=== PATIENT | female | born 1945 | race Caucasian/White ===

== ENCOUNTER 2023-01-20 00:21 | Inpatient (IN) | payer BC, MEDICARE ==
[2023-01-20 01:44] LABS: #Basophils 0.1 thou/uL (0.0-0.2); #Eosinphils 0.1 thou/uL (0.0-0.7); #Lymphocytes 1.3 thou/uL (1.20-3.40); #Monocytes 0.6 thou/uL (0.11-0.59); #Neutrophils 3.9 thou/uL (1.40-6.50); %Basophils 1.3 % (0.0-1.0); %Eosinophils 1.5 % (0.0-10.0); %Lymphocytes 21.1 % (21.0-51.0); %Monocytes 10.5 % (0.0-10.0); %Neutrophils 65.6 % (42.0-75.0); Hemoglobin 10.5 g/dL (12.0-16.0); Mean Corpuscular HGB CONC 33.5 g/dL (32.0-36.0); Mean Corpuscular Hemoglobin 32.1 pg (27.0-31.0); Mean Corpuscular Volume 95.6 fl (78.0-98.0); Mean Platelet Volume 7.1 fL (7.4-10.4); Platelet Count 187 10x3/uL (130-400); Red Blood Cell (RBC) Count 3.28 mill/uL (4.20-5.40)
[2023-01-20 02:06] LABS: ALT (SGPT) 12 U/L (8-55); AST (SGOT) 17 U/L (5-34); Albumin 3.9 g/dL (3.4-4.8); Alkaline Phosphatase 80 U/L (40-110); Anion Gap 9 mmol/L (10-20); BUN (Urea Nitrogen) 9 mg/dL (9.8-20.1); Bilirubin, Total 0.4 mg/dL (0.2-1.2); Calc. Creatinine Clearance 0 mL/min (70-130); Calcium 9.3 mg/dL (7.8-10.44); Carbon Dioxide 28 mmol/L (23-31); Chloride 108 mmol/L (98-107); Estimated GFR 89; Globulin 2.7 g/dL (2.4-3.5); Glucose 128 mg/dL (83-110); Potassium 3.9 mmol/L (3.5-5.1); Protein, Total 6.6 g/dL (5.8-8.1); Sodium 141 mmol/L (136-145)
[2023-01-20] MEDS ORDERED: Morphine 2 MG/ML VIAL SLOW IVP PRN (02:51)
[2023-01-20] MEDS ORDERED: Ipratropium/Albuterol 3 ML NEB NEB PRN (02:51)
[2023-01-20] MEDS ORDERED: Ondansetron PF 4 MG/2 ML Vial IVP PRN (02:51)
[2023-01-20 03:40] LABS: #Eosinphils 0.1 thou/uL (0.0-0.7); #Lymphocytes 0.9 thou/uL (1.20-3.40); #Neutrophils 10.1 thou/uL (1.40-6.50); %Basophils 0.2 % (0.0-1.0); %Eosinophils 0.5 % (0.0-10.0); %Lymphocytes 7.3 % (21.0-51.0); %Monocytes 8.2 % (0.0-10.0); %Neutrophils 83.7 % (42.0-75.0); Hemoglobin 10.3 g/dL (12.0-16.0); Mean Corpuscular HGB CONC 33.4 g/dL (32.0-36.0); Mean Corpuscular Hemoglobin 31.9 pg (27.0-31.0); Mean Corpuscular Volume 95.5 fl (78.0-98.0); Mean Platelet Volume 7.2 fL (7.4-10.4); Platelet Count 181 10x3/uL (130-400); Red Blood Cell (RBC) Count 3.21 mill/uL (4.20-5.40); White Blood Cell (WBC) Count 12.1 10x3/uL (4.8-10.8)
[2023-01-20] MEDS ORDERED: Morphine 2 MG/ML VIAL ONE (03:41)
[2023-01-20] MEDS ORDERED: Ondansetron PF 4 MG/2 ML Vial ONE ×3 (03:41→15:55)
[2023-01-20 04:02] LABS: Anion Gap 11 mmol/L (10-20); BUN (Urea Nitrogen) 9 mg/dL (9.8-20.1); Calc. Creatinine Clearance 0 mL/min (70-130); Calcium 9.4 mg/dL (7.8-10.44); Carbon Dioxide 26 mmol/L (23-31); Chloride 107 mmol/L (98-107); Estimated GFR 91; Glucose 124 mg/dL (83-110); PTT 24.2 sec (22.9-36.1); Potassium 3.5 mmol/L (3.5-5.1); Prothrombin Time 13.6 sec (12.0-14.7); Sodium 140 mmol/L (136-145)
[2023-01-20 04:49] VITALS: BMI 16.0
[2023-01-20] MEDS ORDERED: Sodium Chloride 0.9% 1,000 ML IV SCH (05:15)
[2023-01-20] MEDS ORDERED: Acetaminophen 500 MG TAB PO SCH (06:00)
[2023-01-20] MEDS ORDERED: CEFAZOLIN 2 GM in Sodium Chloride 0.9% 100 ML IVPB SCH (08:45)
[2023-01-20] MEDS ORDERED: Polyethylene Glycol 3350 17 GM Packet PO SCH (09:00)
[2023-01-20] MEDS ORDERED: Senokot S 8.6-50 MG TAB PO SCH (09:00)
[2023-01-20] MEDS ORDERED: TETANUS, DIPHTHERIA TOX,ADULT (TDVAX) 0.5 ML VIAL IM ONE (09:00)
[2023-01-20] MEDS: Lorazepam 0.5 MG TAB PO SCH (09:32)
[2023-01-20] MEDS: Escitalopram Oxalate 10 mg Tablet PO SCH (11:29)
[2023-01-20] MEDS: Senokot S 8.6-50 MG TAB PO SCH ×2 (11:30→21:10)
[2023-01-20] MEDS: Polyethylene Glycol 3350 17 GM Packet PO SCH (11:30)
[2023-01-20] MEDS: Famotidine/PF 20 mg/2ml Vial SLOW IVP SCH ×2 (11:30→21:10)
[2023-01-20] MEDS: Acetaminophen 325 MG TAB PO SCH ×3 (13:03→23:54)
[2023-01-20] MEDS: Carbidopa/Levodopa 25-100 mg Tablet PO SCH ×3 (13:04→23:54)
[2023-01-20] MEDS ORDERED: fentaNYL 50 mcg/mL 1 mL Vial ONE ×2 (14:29→14:42)
[2023-01-20] MEDS ORDERED: Sodium Chloride 0.9% 100 ML ONE (14:33)
[2023-01-20] MEDS ORDERED: CEFAZOLIN 2 GM VIAL ONE (14:33)
[2023-01-20] MEDS ORDERED: Phenylephrine 10 MG/ML VIAL ONE (14:45)
[2023-01-20] MEDS ORDERED: NEOSTIGMINE 3 MG/3 ML SYR 3 MG/3 ML SYRINGE ONE (14:45)
[2023-01-20] MEDS ORDERED: Rocuronium Bromide 10 MG/ML (10ML VIAL) ONE (14:45)
[2023-01-20] MEDS ORDERED: PROPOFOL 200 MG/20 ML VIAL ONE (14:45)
[2023-01-20] MEDS ORDERED: GLYCOPYRROLATE/PF 0.2 MG/ML VIAL ONE (14:45)
[2023-01-20] MEDS ORDERED: Dexamethasone 20 MG/5 ML VIAL ONE (14:45)
[2023-01-20] MEDS ORDERED: Lidocaine 1% PF 5 ML VIAL ONE (14:45)
[2023-01-20] MEDS ORDERED: Promethazine HCl 25 MG/ML VIAL IM PRN (15:13)
[2023-01-20] MEDS ORDERED: Ondansetron HCl/PF 4 MG/2 ML Vial IVP PRN ×2 (15:13→15:56)
[2023-01-20] MEDS ORDERED: PACU-Morphine 4MG/ML VIAL SLOW IVP PRN (15:13)
[2023-01-20] MEDS ORDERED: HYDROmorphone 2 MG/ML VIAL SLOW IVP PRN (15:13)
[2023-01-20] MEDS ORDERED: Morphine Sulfate 2 MG/ML SYRINGE SLOW IVP PRN (15:13)
[2023-01-20] MEDS ORDERED: PHENYLEPHRINE-NS 100 MCG/ML 10 ML SYRINGE ONE (15:27)
[2023-01-20] MEDS ORDERED: diphenhydrAMINE 50 MG/ML VIAL ONE (16:20)
[2023-01-20] MEDS: Acetaminophen/Codeine 30-300mg Tablet PO PRN (21:09)
[2023-01-20] MEDS: CEFAZOLIN 2 GM in Sodium Chloride 0.9% 100 ML IVPB SCH (21:10)
[2023-01-20] MEDS: Mirtazapine 15 MG Soltab PO SCH (21:10)
[2023-01-20] MEDS: QUEtiapine 25 MG TAB PO SCH (21:10)
[2023-01-21 04:47] LABS: Bilirubin Negative (Negative); Blood, Urine Negative (Negative); Clarity Clear (Clear); Glucose, Urine (Dipstick) Normal (Negative); Ketone, Urine Negative (Negative); Leukocyte 75 Leu/uL (Negative); Nitrite Negative (Negative); Protein, Urine (Dipstick) Negative (Neg-Trace); RBC/HPF 0-3 HPF (0-3); Specific Gravity, Urine 1.011 (1.002-1.036); Squamous Epithelial None Seen HPF (0-3); Urobilinogen Normal mg/dL (Less than 2); pH, Urine 6.5 (5.0-9.0)
[2023-01-21 04:54] LABS: Bacteria/HPF 1+ HPF (None Seen)
[2023-01-21] MEDS: Acetaminophen 325 MG TAB PO SCH ×4 (05:51→23:37)
[2023-01-21] MEDS: Carbidopa/Levodopa 25-100 mg Tablet PO SCH ×5 (05:51→18:29)
[2023-01-21] MEDS: CEFAZOLIN 2 GM in Sodium Chloride 0.9% 100 ML IVPB SCH ×2 (06:01→15:21)
[2023-01-21 08:08] LABS: #Lymphocytes 1.4 thou/uL (1.20-3.40); #Monocytes 1.2 thou/uL (0.11-0.59); #Neutrophils 6.8 thou/uL (1.40-6.50); %Basophils 0.3 % (0.0-1.0); %Eosinophils 0.1 % (0.0-10.0); %Lymphocytes 14.9 % (21.0-51.0); %Monocytes 12.2 % (0.0-10.0); %Neutrophils 72.5 % (42.0-75.0); Hemoglobin 9.5 g/dL (12.0-16.0); Mean Corpuscular HGB CONC 33.1 g/dL (32.0-36.0); Mean Corpuscular Hemoglobin 31.8 pg (27.0-31.0); Mean Platelet Volume 7.2 fL (7.4-10.4); Platelet Count 174 10x3/uL (130-400); RBC Distribution Width 12.1 % (11.5-14.5); Red Blood Cell (RBC) Count 2.98 mill/uL (4.20-5.40); White Blood Cell (WBC) Count 9.4 10x3/uL (4.8-10.8)
[2023-01-21] MEDS: Escitalopram Oxalate 10 mg Tablet PO SCH (08:51)
[2023-01-21] MEDS: Famotidine/PF 20 mg/2ml Vial SLOW IVP SCH (08:51)
[2023-01-21] MEDS: Lorazepam 0.5 MG TAB PO SCH (08:51)
[2023-01-21] MEDS: Senokot S 8.6-50 MG TAB PO SCH ×2 (08:51→20:23)
[2023-01-21] MEDS: Polyethylene Glycol 3350 17 GM Packet PO SCH (08:51)
[2023-01-21] MEDS: Aspirin 81 mg Enteric Coated Tablet PO SCH ×2 (09:32→20:23)
[2023-01-21] MEDS: Acetaminophen/Codeine 30-300mg Tablet PO PRN ×2 (09:33→20:28)
[2023-01-21] MEDS: Famotidine 20 MG TAB PO SCH ×2 (09:45→20:23)
[2023-01-21] MEDS: Mirtazapine 15 MG Soltab PO SCH (20:22)
[2023-01-21] MEDS: QUEtiapine 25 MG TAB PO SCH (20:23)
[2023-01-22 06:06] LABS: #Lymphocytes 1.1 thou/uL (1.20-3.40); #Monocytes 1.1 thou/uL (0.11-0.59); #Neutrophils 6.7 thou/uL (1.40-6.50); %Basophils 0.3 % (0.0-1.0); %Eosinophils 0.3 % (0.0-10.0); %Lymphocytes 12.6 % (21.0-51.0); %Monocytes 11.7 % (0.0-10.0); %Neutrophils 75.1 % (42.0-75.0); Hemoglobin 8.4 g/dL (12.0-16.0); Mean Corpuscular HGB CONC 33.1 g/dL (32.0-36.0); Mean Corpuscular Hemoglobin 32.2 pg (27.0-31.0); Mean Platelet Volume 7.4 fL (7.4-10.4); Platelet Count 138 10x3/uL (130-400); RBC Distribution Width 12.1 % (11.5-14.5); Red Blood Cell (RBC) Count 2.62 mill/uL (4.20-5.40); White Blood Cell (WBC) Count 8.9 10x3/uL (4.8-10.8)
[2023-01-22] MEDS: Carbidopa/Levodopa 25-100 mg Tablet PO SCH ×5 (06:34→18:27)
[2023-01-22] MEDS: Acetaminophen 325 MG TAB PO SCH ×3 (06:34→18:27)
[2023-01-22] MEDS: Senokot S 8.6-50 MG TAB PO SCH ×2 (08:37→21:27)
[2023-01-22] MEDS: Escitalopram Oxalate 10 mg Tablet PO SCH (08:37)
[2023-01-22] MEDS: Aspirin 81 mg Enteric Coated Tablet PO SCH ×2 (08:37→21:29)
[2023-01-22] MEDS: Polyethylene Glycol 3350 17 GM Packet PO SCH (08:37)
[2023-01-22] MEDS: Famotidine 20 MG TAB PO SCH ×2 (08:37→21:29)
[2023-01-22] MEDS: Lorazepam 0.5 MG TAB PO SCH (08:37)
[2023-01-22] MEDS ORDERED: Bisacodyl 10 MG SUPP PR PRN (12:56)
[2023-01-22] MEDS: Ferrous Sulfate 325 MG TAB PO SCH (16:30)
[2023-01-22] MEDS: Ascorbic Acid 500 mg Chewable Tablet PO SCH (21:26)
[2023-01-22] MEDS: QUEtiapine 25 MG TAB PO SCH (21:29)
[2023-01-22] MEDS: Acetaminophen/Codeine 30-300mg Tablet PO PRN (21:36)
[2023-01-22] MEDS: Mirtazapine 15 MG Soltab PO SCH (21:36)
[2023-01-23] MEDS: Acetaminophen 325 MG TAB PO SCH ×4 (06:04→18:11)
[2023-01-23] MEDS: Carbidopa/Levodopa 25-100 mg Tablet PO SCH ×5 (06:05→18:11)
[2023-01-23] MEDS: Acetaminophen/Codeine 30-300mg Tablet PO PRN (06:08)
[2023-01-23] MEDS: Lorazepam 0.5 MG TAB PO SCH (08:58)
[2023-01-23] MEDS: Ascorbic Acid 500 mg Chewable Tablet PO SCH ×2 (08:58→20:43)
[2023-01-23] MEDS: Senokot S 8.6-50 MG TAB PO SCH ×2 (08:58→20:43)
[2023-01-23] MEDS: Aspirin 81 mg Enteric Coated Tablet PO SCH ×2 (08:58→20:43)
[2023-01-23] MEDS: Escitalopram Oxalate 10 mg Tablet PO SCH (08:59)
[2023-01-23] MEDS: Polyethylene Glycol 3350 17 GM Packet PO SCH (08:59)
[2023-01-23] MEDS: Ferrous Sulfate 325 MG TAB PO SCH ×2 (08:59→16:11)
[2023-01-23] MEDS: Famotidine 20 MG TAB PO SCH ×2 (08:59→20:43)
[2023-01-23] MEDS: Mirtazapine 15 MG Soltab PO SCH (20:43)
[2023-01-23] MEDS: QUEtiapine 25 MG TAB PO SCH (20:43)
[2023-01-23] MEDS ORDERED: Gabapentin 100 MG CAP PO SCH (21:45)
[2023-01-23] MEDS: Cyclobenzaprine 10 MG TAB PO PRN (22:31)
[2023-01-23] MEDS ORDERED: diphenhydrAMINE 50 MG/ML VIAL IVP SCH (23:04)
[2023-01-24] MEDS ORDERED: diphenhydrAMINE 50 MG/ML VIAL IVP SCH (01:15)
[2023-01-24] MEDS: Acetaminophen 325 MG TAB PO SCH ×4 (06:35→18:27)
[2023-01-24] MEDS: Acetaminophen/Codeine 30-300mg Tablet PO PRN ×2 (06:36→21:14)
[2023-01-24] MEDS: Carbidopa/Levodopa 25-100 mg Tablet PO SCH ×5 (06:36→18:27)
[2023-01-24] MEDS: Polyethylene Glycol 3350 17 GM Packet PO SCH (09:49)
[2023-01-24] MEDS: Lorazepam 0.5 MG TAB PO SCH (09:50)
[2023-01-24] MEDS: Escitalopram Oxalate 10 mg Tablet PO SCH (09:50)
[2023-01-24] MEDS: Senokot S 8.6-50 MG TAB PO SCH ×2 (09:50→21:10)
[2023-01-24] MEDS: Aspirin 81 mg Enteric Coated Tablet PO SCH ×2 (09:50→21:10)
[2023-01-24] MEDS: Ascorbic Acid 500 mg Chewable Tablet PO SCH ×2 (09:50→21:10)
[2023-01-24] MEDS: Ferrous Sulfate 325 MG TAB PO SCH ×2 (09:51→18:27)
[2023-01-24] MEDS: Famotidine 20 MG TAB PO SCH ×2 (09:51→21:09)
[2023-01-24] MEDS: Gabapentin 100 MG CAP PO SCH ×3 (09:51→21:10)
[2023-01-24] MEDS: QUEtiapine 25 MG TAB PO SCH (21:10)
[2023-01-24] MEDS: Cyclobenzaprine 10 MG TAB PO PRN (21:10)
[2023-01-24] MEDS: Mirtazapine 15 MG Soltab PO SCH (21:14)
[2023-01-25] MEDS: Acetaminophen 325 MG TAB PO SCH ×4 (02:23→18:28)
[2023-01-25] MEDS: Carbidopa/Levodopa 25-100 mg Tablet PO SCH ×5 (06:30→18:28)
[2023-01-25] MEDS: Escitalopram Oxalate 10 mg Tablet PO SCH (09:32)
[2023-01-25] MEDS: Senokot S 8.6-50 MG TAB PO SCH ×2 (09:32→21:00)
[2023-01-25] MEDS: Famotidine 20 MG TAB PO SCH ×2 (09:32→21:01)
[2023-01-25] MEDS: Ferrous Sulfate 325 MG TAB PO SCH ×2 (09:32→18:28)
[2023-01-25] MEDS: Ascorbic Acid 500 mg Chewable Tablet PO SCH ×2 (09:32→21:01)
[2023-01-25] MEDS: Aspirin 81 mg Enteric Coated Tablet PO SCH ×2 (09:32→21:01)
[2023-01-25] MEDS: Polyethylene Glycol 3350 17 GM Packet PO SCH (09:34)
[2023-01-25] MEDS: Gabapentin 100 MG CAP PO SCH (10:03)
[2023-01-25] MEDS: Lorazepam 0.5 MG TAB PO SCH (10:04)
[2023-01-25 11:47] LABS: Hemoglobin 6.6 g/dL (12.0-16.0); Mean Corpuscular HGB CONC 33.4 g/dL (32.0-36.0); Mean Corpuscular Hemoglobin 32.2 pg (27.0-31.0); Mean Corpuscular Volume 96.4 fl (78.0-98.0); Mean Platelet Volume 6.9 fL (7.4-10.4); Platelet Count 180 10x3/uL (130-400); Red Blood Cell (RBC) Count 2.05 mill/uL (4.20-5.40); White Blood Cell (WBC) Count 7.3 10x3/uL (4.8-10.8)
[2023-01-25 13:40] LABS: Hemoglobin 6.4 g/dL (12.0-16.0)
[2023-01-25] MEDS: Acetaminophen/Codeine 30-300mg Tablet PO PRN (15:34)
[2023-01-25 20:14] LABS: #Eosinphils 0.4 thou/uL (0.0-0.7); #Monocytes 0.8 thou/uL (0.11-0.59); #Neutrophils 4.6 thou/uL (1.40-6.50); %Basophils 0.5 % (0.0-1.0); %Eosinophils 5.2 % (0.0-10.0); %Lymphocytes 14.8 % (21.0-51.0); %Monocytes 11.6 % (0.0-10.0); %Neutrophils 67.9 % (42.0-75.0); Hemoglobin 7.5 g/dL (12.0-16.0); Mean Corpuscular HGB CONC 33.9 g/dL (32.0-36.0); Mean Corpuscular Hemoglobin 32.1 pg (27.0-31.0); Mean Corpuscular Volume 94.9 fl (78.0-98.0); Mean Platelet Volume 7.2 fL (7.4-10.4); Platelet Count 190 10x3/uL (130-400); RBC Distribution Width 12.4 % (11.5-14.5); Red Blood Cell (RBC) Count 2.34 mill/uL (4.20-5.40); White Blood Cell (WBC) Count 6.8 10x3/uL (4.8-10.8)
[2023-01-25] MEDS: Mirtazapine 15 MG Soltab PO SCH (21:01)
[2023-01-25] MEDS: QUEtiapine 25 MG TAB PO SCH (21:01)
[2023-01-25] MEDS: Lorazepam 0.5 MG TAB PO PRN (21:11)
[2023-01-26] MEDS: Acetaminophen 325 MG TAB PO SCH ×5 (00:08→23:48)
[2023-01-26 07:01] LABS: #Basophils 0.1 thou/uL (0.0-0.2); #Eosinphils 0.5 thou/uL (0.0-0.7); #Lymphocytes 1.3 thou/uL (1.20-3.40); #Monocytes 0.9 thou/uL (0.11-0.59); #Neutrophils 4.3 thou/uL (1.40-6.50); %Basophils 0.9 % (0.0-1.0); %Eosinophils 6.5 % (0.0-10.0); %Lymphocytes 18.8 % (21.0-51.0); %Monocytes 12.5 % (0.0-10.0); %Neutrophils 61.4 % (42.0-75.0); Hemoglobin 7.7 g/dL (12.0-16.0); Mean Corpuscular HGB CONC 33.9 g/dL (32.0-36.0); Mean Corpuscular Hemoglobin 32.4 pg (27.0-31.0); Mean Corpuscular Volume 95.6 fl (78.0-98.0); Mean Platelet Volume 7.1 fL (7.4-10.4); Platelet Count 202 10x3/uL (130-400); RBC Distribution Width 12.4 % (11.5-14.5); Red Blood Cell (RBC) Count 2.38 mill/uL (4.20-5.40)
[2023-01-26] MEDS: Carbidopa/Levodopa 25-100 mg Tablet PO SCH ×5 (07:03→19:35)
[2023-01-26 07:17] LABS: Anion Gap 12 mmol/L (10-20); BUN (Urea Nitrogen) 19 mg/dL (9.8-20.1); Calc. Creatinine Clearance 58 mL/min (70-130); Calcium 9.1 mg/dL (7.8-10.44); Carbon Dioxide 25 mmol/L (23-31); Chloride 106 mmol/L (98-107); Estimated GFR 93; Glucose 97 mg/dL (83-110); Magnesium 1.8 mg/dL (1.6-2.6); Phosphorus 2.8 mg/dL (2.3-4.7); Potassium 3.5 mmol/L (3.5-5.1); Sodium 139 mmol/L (136-145)
[2023-01-26] MEDS ORDERED: Magnesium 2 GM/50 ML(in water) 2 GM in Premix Bag 1 BAG IVPB SCH (08:00)
[2023-01-26] MEDS ORDERED: PHOS-NAK 1 PKT PACK PO SCH (08:00)
[2023-01-26] MEDS: Ascorbic Acid 500 mg Chewable Tablet PO SCH ×2 (09:41→19:40)
[2023-01-26] MEDS: Escitalopram Oxalate 10 mg Tablet PO SCH (09:41)
[2023-01-26] MEDS: Ferrous Sulfate 325 MG TAB PO SCH ×2 (09:41→15:49)
[2023-01-26] MEDS: Famotidine 20 MG TAB PO SCH ×2 (09:41→19:40)
[2023-01-26] MEDS: Aspirin 81 mg Enteric Coated Tablet PO SCH ×2 (09:41→19:39)
[2023-01-26] MEDS: Senokot S 8.6-50 MG TAB PO SCH ×2 (10:10→19:39)
[2023-01-26] MEDS: Acetaminophen/Codeine 30-300mg Tablet PO PRN ×2 (10:10→19:40)
[2023-01-26] MEDS: Polyethylene Glycol 3350 17 GM Packet PO SCH (10:14)
[2023-01-26] MEDS: Lorazepam 0.5 MG TAB PO PRN (15:49)
[2023-01-26] MEDS: Mirtazapine 15 MG Soltab PO SCH (19:40)
[2023-01-26] MEDS: QUEtiapine 25 MG TAB PO SCH (19:40)
[2023-01-26] MEDS: Cyclobenzaprine 10 MG TAB PO PRN (19:40)
[2023-01-27 06:00] LABS: #Basophils 0.1 thou/uL (0.0-0.2); #Eosinphils 0.4 thou/uL (0.0-0.7); #Lymphocytes 1.6 thou/uL (1.20-3.40); #Monocytes 0.9 thou/uL (0.11-0.59); %Basophils 1.2 % (0.0-1.0); %Eosinophils 5.8 % (0.0-10.0); %Monocytes 12.8 % (0.0-10.0); %Neutrophils 57.2 % (42.0-75.0); Hemoglobin 8.2 g/dL (12.0-16.0); Mean Corpuscular HGB CONC 33.9 g/dL (32.0-36.0); Mean Corpuscular Hemoglobin 32.6 pg (27.0-31.0); Mean Corpuscular Volume 96.2 fl (78.0-98.0); Mean Platelet Volume 6.9 fL (7.4-10.4); Platelet Count 261 10x3/uL (130-400); RBC Distribution Width 12.3 % (11.5-14.5); Red Blood Cell (RBC) Count 2.52 mill/uL (4.20-5.40)
[2023-01-27] MEDS: Lorazepam 0.5 MG TAB PO PRN ×2 (06:13→21:12)
[2023-01-27] MEDS: Acetaminophen 325 MG TAB PO SCH ×3 (06:13→17:45)
[2023-01-27] MEDS: Carbidopa/Levodopa 25-100 mg Tablet PO SCH ×5 (07:18→17:45)
[2023-01-27] MEDS: Senokot S 8.6-50 MG TAB PO SCH ×2 (09:15→21:06)
[2023-01-27] MEDS: Ferrous Sulfate 325 MG TAB PO SCH ×2 (09:15→17:45)
[2023-01-27] MEDS: Polyethylene Glycol 3350 17 GM Packet PO SCH (09:15)
[2023-01-27] MEDS: Famotidine 20 MG TAB PO SCH ×2 (09:16→21:06)
[2023-01-27] MEDS: Ascorbic Acid 500 mg Chewable Tablet PO SCH ×2 (09:16→21:06)
[2023-01-27] MEDS: Aspirin 81 mg Enteric Coated Tablet PO SCH ×2 (09:17→21:06)
[2023-01-27] MEDS: Escitalopram Oxalate 10 mg Tablet PO SCH (09:17)
[2023-01-27] MEDS: Cyclobenzaprine 10 MG TAB PO PRN (21:06)
[2023-01-27] MEDS: Mirtazapine 15 MG Soltab PO SCH (21:06)
[2023-01-27] MEDS: QUEtiapine 25 MG TAB PO SCH (21:06)
[2023-01-28] MEDS: Acetaminophen 325 MG TAB PO SCH ×4 (02:32→17:47)
[2023-01-28] MEDS: Carbidopa/Levodopa 25-100 mg Tablet PO SCH ×5 (06:37→17:47)
[2023-01-28] MEDS: Ferrous Sulfate 325 MG TAB PO SCH ×2 (10:03→17:47)
[2023-01-28] MEDS: Ascorbic Acid 500 mg Chewable Tablet PO SCH ×2 (10:03→20:09)
[2023-01-28] MEDS: Famotidine 20 MG TAB PO SCH ×2 (10:04→20:08)
[2023-01-28] MEDS: Aspirin 81 mg Enteric Coated Tablet PO SCH ×2 (10:04→20:09)
[2023-01-28] MEDS: Escitalopram Oxalate 10 mg Tablet PO SCH (10:04)
[2023-01-28] MEDS: Senokot S 8.6-50 MG TAB PO SCH ×2 (10:09→20:09)
[2023-01-28] MEDS: Polyethylene Glycol 3350 17 GM Packet PO SCH (10:09)
[2023-01-28] MEDS: Mirtazapine 15 MG Soltab PO SCH (20:08)
[2023-01-28] MEDS: QUEtiapine 25 MG TAB PO SCH (20:09)
[2023-01-29] MEDS: Acetaminophen 325 MG TAB PO SCH ×2 (00:41→06:57)
[2023-01-29] MEDS: Carbidopa/Levodopa 25-100 mg Tablet PO SCH ×2 (06:57→08:59)
[2023-01-29 07:34] VITALS: BP 138/79; TEMP 98.4
[2023-01-29] MEDS: Famotidine 20 MG TAB PO SCH (08:59)
[2023-01-29] MEDS: Senokot S 8.6-50 MG TAB PO SCH (08:59)
[2023-01-29] MEDS: Escitalopram Oxalate 10 mg Tablet PO SCH (08:59)
[2023-01-29] MEDS: Ascorbic Acid 500 mg Chewable Tablet PO SCH (08:59)
[2023-01-29] MEDS: Aspirin 81 mg Enteric Coated Tablet PO SCH (08:59)
[2023-01-29] MEDS: Ferrous Sulfate 325 MG TAB PO SCH (08:59)
[2023-01-29] MEDS: Polyethylene Glycol 3350 17 GM Packet PO SCH (10:48)
== END 2023-01-29 10:45 | DRG 481 ==
LOC: ERS 00:21 → SURG A 02:56
PROVIDERS: ADMIT Surgery; ATTEND Surgery
PROC: 0QS606Z Reposition Right Upper Femur with Intramedullary Internal Fixation Device, Open Approach (ICD-10-PCS; principal; 2023-01-20)
PROC: 30233N1 Transfusion of Nonautologous Red Blood Cells into Peripheral Vein, Percutaneous Approach (ICD-10-PCS; 2023-01-25)
DX: S72.141A Displaced intertrochanteric fracture of right femur, initial encounter for closed fracture (principal); D62 Acute posthemorrhagic anemia; S42.301A Unspecified fracture of shaft of humerus, right arm, initial encounter for closed fracture; Z68.1 Body mass index [BMI] 19.9 or less, adult; G20 Parkinson's disease; K21.9 Gastro-esophageal reflux disease without esophagitis; M81.0 Age-related osteoporosis without current pathological fracture; R63.6 Underweight; F02.80 Dementia in other diseases classified elsewhere, unspecified severity, without behavioral disturbance, psychotic disturbance, mood disturbance, and anxiety; W18.30XA Fall on same level, unspecified, initial encounter; Z79.899 Other long term (current) drug therapy; F41.9 Anxiety disorder, unspecified; Z96.642 Presence of left artificial hip joint
CPT/HCPCS: 36415; 36416; 36430; 70450; 71045; 72125; 72170; 72192; 80048; 80053; 81003; 81015; 83735; 84100; 85025; 85027; 85610; 85730; 86850; 86900; 86901; 93005; 96374; 96375; C1713; J1100; J1200; J2272; J2370; J2405; J2704; J3010; J3475; J3490; J7050; P9016; S0028